=== PATIENT | female | born 1960 | race Caucasian/White ===

== ENCOUNTER → 2022-02-14 | Outpatient (CLI) | payer OTHER, SELFPAY ==
[2022-02-14 17:44] LABS: AST(SGOT) 27 U/L (15-37); Alanine Aminotransfer ALT/SGPT 44 U/L (13-56); Albumin, Serum 3.7 g/dL (3.2-5.0); Alkaline Phosphatase 101 U/L (45-117); Bilirubin, Direct 0.08 mg/dL (0.00-0.30); Cholesterol 209 mg/dL (200); Globulin 3.3 g/dL (2.2-4.2); High Density Lipoprotein 53 mg/dL; Triglycerides 211 mg/dL; Very Low Density Lipoprotein 42 mg/dL (5-40)
== END | disposition home or self-care (01) ==
LOC: LAB 16:28
PROVIDERS: Referring Provider Internal Medicine Cardiovascular Disease; Visit Provider Internal Medicine Cardiovascular Disease
DX: R07.9 Chest pain, unspecified (principal); R00.2 Palpitations; E03.9 Hypothyroidism, unspecified
CPT/HCPCS: 36415; 80061; 80076

== ENCOUNTER → 2022-02-22 | Outpatient (CLI) | payer OTHER, SELFPAY ==
--- NOTE | 2022-02-22 11:43 | CDU_ITS ---
Reason For Study: bruit Rt. Velocities/BP Lt. Velocities/BP Prox CCA 69.5/14.7 cm/sec. Prox CCA 75.1/20.1 cm/sec. Mid CCA 68.2/14.7 cm/sec. Mid CCA 73.9/16.8 cm/sec. Dist CCA 59.1/14.7 cm/sec. Dist CCA 48.7/14.6 cm/sec. Prox ICA 38.8/16.8 cm/sec. Prox ICA 60.8/25.6 cm/sec. Mid ICA 54.2/21.2 cm/sec. Mid ICA 62.9/23.4 cm/sec. Dist ICA 48.8/20.9 cm/sec. Dist ICA 58.2/25.5 cm/sec. Rt. ICA/CCA = .8. Lt. ICA/CCA = .9. Prox ECA 48.6/9.5 cm/sec. Prox ECA 65.1/11.3 cm/sec. Rt. Vert. 42.1/12.4 cm/sec. Lt. Vert. 45.4/17.9 cm/sec. Right Extracranial There is intimal thickening but no significant atherosclerotic plaque noted in the right common carotid artery. There is heterogeneous, irregular atherosclerotic plaque noted in the right internal carotid artery. There is intimal thickening but no significant atherosclerotic plaque noted in the right external carotid artery. Antegrade flow is noted in the right vertebral artery. Left Extracranial There is intimal thickening but no significant atherosclerotic plaque noted in the left common carotid artery. There is heterogeneous, smooth atherosclerotic plaque noted in the left internal carotid artery. There is intimal thickening but no significant atherosclerotic plaque noted in the left external carotid artery. Antegrade flow is noted in the left vertebral artery. Procedure Carotid Duplex 33354. This is a Carotid Duplex examination using B-mode, color flow and specral Doppler. The exam was diagnostic. Exam performed in department. VL/Carotid Duplex Ultrasound Interpretation Summary Minimal calcific plaque at the proximal right internal carotid artery with less than 50% stenosis Less than 50% stenosis right external carotid artery Minimal smooth calcific plaque at the proximal left internal carotid artery wit h less than 50% stenosis Less than 50% stenosis left external carotid artery Patent and antegrade vertebral arteries bilaterally Ordering Physician: Jerson Jones Performed By: Hang Rogel RVT
--- NOTE | 2022-02-22 11:43 | ECHOD_ITS ---
Reason For Study: Arrhythmia Procedure This was a 2D Doppler, Color Flow transthoracic echocardiogram. Exam performed in department. Left Ventricle Normal LV size. Left ventricular systolic function is normal. The estimated ejection fraction is 60 %. Stage 1 diastolic dysfunction. No regional wall motion abnormalities noted. Right Ventricle Normal RV size. Normal systolic function. Atria Normal left atrium. Hypoechoic mass measuring 1.5 x 0.8 cm appears to be adherent to the superior surface of the left atrium. Normal right atrium. Mitral Valve Chordal systolic anterior motion of the mitral valve. Mild diffuse mitral valve thickening. Trivial eccentric mitral valve insufficiency. Tricuspid Valve Normal tricuspid valve. Mild tricuspid valve insufficiency. Aortic Valve Normal aortic valve. Pulmonic Valve Normal pulmonic valve. Great Vessels Normal aortic root. The pulmonary artery is normal size. Normal inferior vena cava. Pericardium/Pleural No pericardial effusion. MMode/2D Measurements & Calculations LVIDd: 4.2 cm IVSd: 0.98 cm Ao root diam: 3.2 cm LVIDs: 2.7 cm LVPWd: 1.0 cm RVDd: 2.9 cm FS: 34.1 % LAV(MOD-bp): 40.6 ml LVAd ap4: 23.7 cm2 LVAd ap2: 24.2 cm2 LAV(MOD-bp) Indexed: 21.6 ml/m2 LVLd ap4: 7.8 cm LVLd ap2: 7.7 cm LAV(MOD-sp2): 34.7 ml EDV(MOD-sp4): 61.2 ml EDV(MOD-sp2): 64.6 ml LAV(MOD-sp4): 41.6 ml EDV(sp4-el): 60.6 ml EDV(sp2-el): 64.6 ml LVAs ap4: 12.4 cm2 LVAs ap2: 12.8 cm2 LVLs ap4: 6.6 cm LVLs ap2: 6.8 cm ESV(MOD-sp4): 21.0 ml ESV(MOD-sp2): 21.1 ml ESV(sp4-el): 19.6 ml ESV(sp2-el): 20.4 ml EF(MOD-sp4): 65.6 % EF(MOD-sp2): 67.3 % EF(sp4-el): 67.7 % SV(MOD-sp4): 40.2 ml SV(MOD-sp2): 43.5 ml SV(sp4-el): 41.0 ml LA dimension(2D): 3.3 cm LA A4 area: 16.2 cm2 RA A4 area: 10.6 cm2 Doppler Measurements & Calculations MV E max akbar: 51.2 cm/sec Lat Peak E' Akbar: 12.2 cm/sec Med Peak E' Akbar: 7.0 cm/sec MV A max akbar: 71.2 cm/sec E/E' lat: 4.2 E/E' med: 7.3 MV E/A: 0.72 Ao V2 max: 127.2 cm/sec LV V1 max: 104.5 cm/sec PA V2 max: 80.6 cm/sec Ao max P.5 mmHg LV V1 max P.4 mmHg TR max akbar: 215.7 cm/sec TR max P.6 mmHg ECHO/Echo Complete Interpretation Summary Normal LV size. Left ventricular systolic function is normal. The estimated ejection fraction is 60 %. Chordal systolic anterior motion of the mitral valve. Hypoechoic mass measuring 1.5 x 0.8 cm appears to be adherent to the superior s urface of the left atrium. Stage 1 diastolic dysfunction. Ordering Physician: Jerson Jones Performed By: Linda Mtz RDCS
== END | disposition home or self-care (01) ==
PROVIDERS: Visit Provider Internal Medicine Cardiovascular Disease
DX: R07.9 Chest pain, unspecified (principal); R09.89 Other specified symptoms and signs involving the circulatory and respiratory systems
CPT/HCPCS: 93306; 93880

== ENCOUNTER → 2022-02-26 | Outpatient (CLI) | payer OTHER, SELFPAY ==
--- NOTE | 2022-02-26 08:58 | ECHOTEE_ITS ---
Reason For Study: R/O LA mass Medication IVANIA probe 6VT-D (SN [id number]) passed without difficulty. No complications were noted. Cetacaine Topical [place] given X3 orally. Versed 3 mg given slow IVP. Fentanyl 50 mcg given slow IVP. Performed a rapid injection of agitated mix of 9 cc saline and 1cc air to assess for atrial septal defect. Left Ventricle Normal left ventricle. Left ventricular systolic function is normal. The estimated ejection fraction is 60 %. No regional wall motion abnormalities noted. Right Ventricle Normal RV size. Normal systolic function. Atria Intact atrial septum. Bubble contrast study negative for right to left interatrial shunt. Normal left atrium. No thrombus is detected in the left atrial appendage. Normal right atrium. Mitral Valve Normal mitral valve. Trivial eccentric mitral valve insufficiency. Tricuspid Valve Normal tricuspid valve. Trivial tricuspid valve insufficiency. Aortic Valve Normal aortic valve. Trisinus/trileaflet aortic valve. Pulmonic Valve Normal pulmonic valve. Vessels Normal aortic root. Normal arch. The pulmonary artery is normal size. Pericardium No pericardial effusion. ECHO/Echo Transesophageal (IVANIA) Interpretation Summary Normal left ventricle. Left ventricular systolic function is normal. The estimated ejection fraction is 60 %. Structurally normal valves are noted. No mass is noted in the left atrium or right atrium. The previous notation on the transthoracic must have been artifactual. Bubble contrast study negative for right to left interatrial shunt. Ordering Physician: Jerson Jones Performed By: Linda Mtz RDCS
== END | disposition home or self-care (01) ==
PROVIDERS: Visit Provider Internal Medicine Cardiovascular Disease
DX: I51.89 Other ill-defined heart diseases (principal); Z20.822 Contact with and (suspected) exposure to COVID-19
CPT/HCPCS: 87426; 93312; 93320; 93325; C9803; J7030; A4216